=== PATIENT | male | born 1960 | race Two or more races ===

== ENCOUNTER 2021-06-09 11:01 | Emergency (ER) | payer BC, OTHER ==
[~2021-06-09] VITALS: Ht 162.6 cm; Wt 70.3 kg
[2021-06-09] MEDS ORDERED: ASPirin 81 mg TAB PO ONE (12:00)
[2021-06-09 12:49] LABS: Basophils # (auto) 0 10 ^3/uL (0-0.2); Eosinophils # (auto) 0.1 10 ^3/uL (0-0.8); Eosinophils % (auto) 1.5 % (0.0-7.0); Hemoglobin 12.8 g/dL (13.5-17.5); Lymphocytes # (auto) 0.8 10 ^3/uL (0.4-5.4); Monocytes # (auto) 0.2 10 ^3/uL (0-1.3); Neutrophils # (auto) 2.5 10 ^3/uL (1.6-8.6); White Blood Cell 3.6 10^3/uL (4.4-10.8)
[2021-06-09 12:51] LABS: Basophils % (auto) 0.5 % (0.0-2.0); Hematocrit 38.2 % (41.0-53.0); Mean Corpuscular Hemoglobin 26.6 pg (28.0-32.0); Mean Corpuscular Hgb Conc. 33.5 g/dL (32.0-36.0); Mean Corpuscular Volume 79.5 fL (80.0-100.0); Monocytes % (auto) 5.8 % (0.0-12.0); Neutrophils % (auto) 69.2 % (37.0-80.0); Nucleated Red Blood Cells % 0.1 %; Red Cell Distribution Width 15.6 % (11.8-14.3)
[2021-06-09 13:17] LABS: Potassium 3.8 mmol/L (3.5-5.1); Sodium 135 mmol/L (136-145)
[2021-06-09 13:24] LABS: Alanine Aminotransferase 33 U/L (16-61); Albumin 3.2 g/dL (3.4-5.0); Alkaline Phosphatase 67 U/L (45-117); Aspartate Aminotransferase 26 U/L (15-37); BUN/Creatinine Ratio 11.4; Bilirubin, Total 0.5 mg/dL (0.2-1.0); Blood Urea Nitrogen 12 mg/dL (7-18); Calcium 8.2 mg/dL (8.5-10.1); Carbon Dioxide 28 mmol/L (21-32); GFR African American 92 mL/min; GFR Non-African American 76 mL/min; Glucose 334 mg/dL (74-106); Magnesium 1.8 mg/dL (1.6-2.6); Total Protein 6.8 g/dL (6.4-8.2)
[2021-06-09 14:11] VITALS: BP 142/74
[2021-06-09 15:01] LABS: Anion Gap 5 (5-15); Chloride 102 mmol/L (98-107)
== END 2021-06-09 16:18 | disposition left against medical advice (07) ==
LOC: ER 11:01
DX: R07.89 Other chest pain (principal); F15.10 Other stimulant abuse, uncomplicated; Z53.29 Procedure and treatment not carried out because of patient's decision for other reasons; Z20.822 Contact with and (suspected) exposure to COVID-19
CPT/HCPCS: 36415; 71045; 80053; 83735; 84484; 85025; 93005